=== PATIENT | female | born 1955 | race Caucasian/White ===

== ENCOUNTER 2016-06-23 10:46 | Emergency (ER) | payer OTHER ==
[~2016-06-23] VITALS: Ht 162.6 cm; Wt 53.6 kg
[~2016-06-23 10:46] MED LIST: ALPR.25 PO; FLUT1SPR9 NASAL; TEMA15 PO; ULTR50TA PO; ZOFR4TAB3 SL
[2016-06-23 10:56] VITALS: BP 136/70; PULSE 96; RESP 18; TEMP 98.3; O2SAT 98
[2016-06-23] MEDS ORDERED: TEMA15CA PO (11:06)
[2016-06-23] MEDS ORDERED: CLOT10TR PO (11:07)
[2016-06-23 11:09] VITALS: BP 124/60; PULSE 88; RESP 18; O2SAT 99
[2016-06-23] MEDS ORDERED: DIFL100T PO (11:13)
[2016-06-23] MEDS ORDERED: SODIUM CHLOR 0.9% 1000 ML INJ 1,000 ML IV ONE (11:15)
--- NOTE | 2016-06-23 11:21 | PD ---
HPI Chief Complaint: General Weakness Time Seen by Provider: 11:03 Travel History International Travel<30 days: No Contact w/Intl Traveler<30days: No Traveled to known affect area: No History of Present Illness HPI 61-year-old female notes a lot of stress lately as her sister was on hospice and she was with her during her last days. She states during this time she developed a whiteness to her tongue and a lesion to her lip and was diagnosed with thrush at an urgent care. She was prescribed clotmitrazole lozenges and feels like she's getting worse. She states that she is able to drink liquids but doesn't really feel like eating. She states that she hasn't been running any fevers or had other concurrent complaints. She states she is nervous with her history of non-Hodgkin's lymphoma that she is developing other issues from the lozenges. She denies specific modifying factors otherwise. PFSH Past Medical History Cancer: Yes (lymphoma, NON HODGIKIN'S) Cardiovascular Problems: No Chemotherapy: Yes Diabetes: No Endocrine: No Genitourinary: No Hepatitis: Yes (HEP C) Hiatal Hernia: No Immune Disorder: No Implanted Vascular Access Dvce: Yes Medical other: No Musculoskeletal: No Neurologic: No Psychiatric: No Reproductive: No Respiratory: No Thyroid Disease: No Influenza Vaccination: No ?: Not Menopausal: Yes Past Surgical History Abdominal Surgery: No AICD: No Cardiac Surgery: No Ear Surgery: No Endocrine Surgery: No Eye Surgery: No Genitourinary Surgery: No Gynecologic Surgery: No Joint Replacement: No Oral Surgery: No Pacemaker: No Thoracic Surgery: Yes (BREAST AUGMENTATION) Other Surgery: Yes (PORT PLACED 07/03/15 RT CHEST, BREAST AUGMENTATION) Social History Alcohol Use: No Tobacco Use: No Substance Use: No Allergies-Medications (Allergen,Severity, Reaction): Coded Allergies: Codeine (Verified Allergy, Intermediate, Itching, 06/23/16) Amoxicillin (Verified Allergy, Mild, Drowsiness, 06/23/16) Percocet (Verified Allergy, Unknown, Nausea/Vomiting, 06/23/16) Reported Meds & Prescriptions Reported Meds & Active Scripts Active Diflucan (Fluconazole) 100 Mg Tab 100 Mg PO DAILY 10 Days Reported Clotrimazole Irina (Clotrimazole) 10 Mg Troc 10 Mg PO 5 TIMES A DAY Temazepam 15 Mg Cap 15 Mg PO HS PRN Review of Systems Except as stated in HPI: all other systems reviewed are Neg Physical Exam Narrative GENERAL: Well-nourished, well-developed patient. SKIN: Warm and dry. HEAD: Normocephalic and atraumatic. EYES: No injection or drainage. Pupils equal ENT: No nasal drainage noted. White plaquing noted to tongue, to center of lower lip there is a dry cracked area with overlying dried blood, no plaques noted to posterior oropharynx, no uvula edema, uvula midline NECK: Supple, trachea midline. CARDIOVASCULAR: Regular rate and rhythm RESPIRATORY: Breath sounds equal bilaterally. No accessory muscle use. GASTROINTESTINAL: Abdomen soft, non-tender, nondistended. EXTREMITIES: No edema. NEUROLOGICAL: Awake and alert. Motor and sensory grossly within normal limits. Normal speech. Data Data Last Documented VS Vital Signs Date Time Temp Pulse Resp B/P Pulse Ox O2 Delivery O2 Flow Rate FiO2 06/23/16 12:31 85 128/58 99 06/23/16 11:22 Room Air 06/23/16 11:09 18 06/23/16 10:56 98.3 Orders Complete Blood Count With Diff (06/23/16 11:12) Basic Metabolic Panel (Bmp) (06/23/16 11:12) Iv Access Insert/Monitor (06/23/16 11:12) Ecg Monitoring (06/23/16 11:12) Oximetry (06/23/16 11:12) Sodium Chlor 0.9% 1000 Ml Inj (Ns 1000 M (06/23/16 11:15) Labs Laboratory Tests Test 06/23/16 11:20 White Blood Count 2.6 TH/MM3 Red Blood Count 4.54 MIL/MM3 Hemoglobin 13.2 GM/DL Hematocrit 38.7 % Mean Corpuscular Volume 85.2 FL Mean Corpuscular Hemoglobin 29.0 PG Mean Corpuscular Hemoglobin 34.0 % Concent Red Cell Distribution Width 13.4 % Platelet Count 91 TH/MM3 Mean Platelet Volume 6.7 FL Neutrophils (%) (Auto) 62.3 % Lymphocytes (%) (Auto) 25.6 % Monocytes (%) (Auto) 10.3 % Eosinophils (%) (Auto) 1.5 % Basophils (%) (Auto) 0.3 % Neutrophils # (Auto) 1.6 TH/MM3 Lymphocytes # (Auto) 0.7 TH/MM3 Monocytes # (Auto) 0.3 TH/MM3 Eosinophils # (Auto) 0.0 TH/MM3 Basophils # (Auto) 0.0 TH/MM3 CBC Comment AUTO DIFF Differential Comment AUTO DIFF CONFIRMED Sodium Level 141 MEQ/L Potassium Level 3.6 MEQ/L Chloride Level 104 MEQ/L Carbon Dioxide Level 27.4 MEQ/L Anion Gap 10 MEQ/L Blood Urea Nitrogen 8 MG/DL Creatinine 0.40 MG/DL Estimat Glomerular Filtration 162 ML/MIN Rate Random Glucose 94 MG/DL Calcium Level 8.5 MG/DL [place] Medical Decision Making Medical Screen Exam Complete: Yes Emergency Medical Condition: Yes Medical Record Reviewed: Yes (past history confirm, recent oncology note reviewed) Interpretation(s) CBC & BMP Diagram 06/23/16 11:20 Differential Diagnosis Thrush, dehydration, herpetic lesion.... Narrative Course Will check basic blood work and dose with IV fluids and reevaluate. Patient agrees with this is normal for discharge on Diflucan BMP without signs of dehydration, CBC with leukopenia and thrombocytopenia near baseline, able to tolerate liquids, will change prescription to Diflucan. Patient given strict return precautions, vitals reviewed and are normal, agrees to further workup as an outpatient. Diagnosis Primary Impression: Lip lesion Additional Impression: Tongue abnormality Patient Instructions: General Instructions Additional Instructions: follow with primary tommorrow, return as needed, keep hydrated Med/Other Pt SpecificInfo: Prescription(s) given Scripts Fluconazole (Diflucan)100 Mg [id number] Mg PO DAILY 10 Days Ref 0 Prov:Paris Gross MD 06/23/16 Disposition: 01 DISCHARGE HOME Condition: Stable Paris Gross MD Jun 23, 2016 11:21
[2016-06-23 11:22] VITALS: O2SAT 97
[2016-06-23 11:38] LABS: POTASSIUM 3.6 MEQ/L (3.5-5.1)
[2016-06-23 11:39] LABS: AUTOMATED NEUTROPHIL # 1.6 TH/MM3 (1.8-7.7); BASOPHIL % 0.3 % (0.0-2.0); EOSINOPHIL % 1.5 % (0.0-4.0); HEMATOCRIT 38.7 % (35.0-46.0); LYMPH % 25.6 % (9.0-44.0); LYMPHOCYTE # 0.7 TH/MM3 (1.0-4.8); MEAN CELL VOLUME 85.2 FL (80.0-100.0); MONO % 10.3 % (0.0-8.0); NEUT % 62.3 % (16.0-70.0); PLATELET COUNT 91 TH/MM3 (150-450); RED BLOOD COUNT 4.54 MIL/MM3 (4.00-5.30); RED CELL DISTRIBUTION WIDTH 13.4 % (11.6-17.2); WHITE BLOOD COUNT 2.6 TH/MM3 (4.0-11.0)
[2016-06-23 11:41] LABS: BICARBONATE 27.4 MEQ/L (21.0-32.0)
[2016-06-23 11:43] LABS: HEMO FLAGS AUTO DIFF
[2016-06-23 12:02] LABS: SCAN/DIFF AUTO DIFF CONFIRMED
[2016-06-23 12:31] VITALS: BP 128/58
== END 2016-06-23 12:32 | disposition home or self-care (01) ==
LOC: PHED 10:46
DX: K13.0 Diseases of lips (principal); K13.21 Leukoplakia of oral mucosa, including tongue; B19.20 Unspecified viral hepatitis C without hepatic coma; Z85.72 Personal history of non-Hodgkin lymphomas
CPT/HCPCS: 80048; 85025; 96360; 99283; J7030